=== PATIENT | female | born 1970 | race Caucasian/White ===

== ENCOUNTER 2025-03-07 18:06 | Emergency (ER) | payer OTHER ==
[~2025-03-07] VITALS: Ht 180.3 cm; Wt 104.5 kg
[2025-03-07 18:13] VITALS: BP 148/77; PULSE 82; O2SAT 98
--- NOTE | 2025-03-07 18:53 | RADIOLOGY REPORT ---
Indication: fall w/pain Technique: DI KNEE, COMP 4 VW MINKNEE CMPT Comparison: None FINDINGS/IMPRESSION: No radiographic evidence for acute fracture or dislocation. Moderate tricompartmental degenerative joint disease. Small to moderate suprapatellar effusion. Enthesopathy at quadriceps insertion upon the patella.
--- NOTE | 2025-03-07 19:12 | Physician Documentation ---
History of Present Illness ~ Chief Complaint: Knee Pain Stated Complaint: L KNEE PAIN Time Seen by MD: 18:36 HPI Patient is seen today with complaints of left-sided knee pain that is been slowly worsening over the last six months or so up until she tripped and fell yesterday and beth it but denies any direct blunt trauma or blunt force trauma to the left knee. She states she felt or heard a pop and now has trouble bearing weight on her left knee as well as flexing the left knee. She has no other concern or complaint at this time. Tetanus witin 5 years: No Medication Reconciliation Allergies: Coded Allergies: codeine (Verified Allergy, Unknown, hives, 03/07/25) Review of Systems Constitutional: Denies: chills, fever, weakness Eyes: Denies: pain, blurred vision ENT: Denies: ear pain, nose pain, throat pain, mouth pain Respiratory: Denies: cough, shortness of breath Cardiovascular: Denies: chest pain, palpitations Gastrointestinal: Denies: abdominal pain, nausea, vomiting Genitourinary: Denies: burning, dysuria Female Genitalia: Denies: vaginal discharge, pelvic pain Neurological: Denies: headache, dizziness Musculoskeletal: Denies: pain, swelling Integumentary: Denies: rash, lesions Allergic/Immunologic: Denies: hives, itching Hematologic/Lymphatic: Denies: no symptoms reported Psychiatric: Denies: depression, anxiety Physical Exam Vital Signs: Temperature: 99.8, Source: Oral, Heart Rate: 82, Respiratory Rate: 16, BP: 148/77, Pulse Oximetry: 98, Weight: 104.550 Oxygen Flow Rate: 0 Physical Exam General: Awake and Alert, no acute distress. HEENT: Conjunctiva pink, Sclera clear, Mucus Membranes moist. Neck: Supple without masses and tenderness. Resp: Unlabored. Lungs clear to auscultation bilaterally. Heart: Regular Rate and rhythm, normal S1 and S2 without murmur, rub or gallop. Musculoskeletal: Patient on exam does have pain with flexion of the left knee. She has mild swelling noted of the left knee. No significant tenderness or erythema or warmth or sign of infection of the left knee. Extremities: No cyanosis,clubbing or edema. Skin: Warm and Dry. Progress Results/Orders Results/Orders Orders - TAWANDA QUINTERO PAC Knee, Complete (03/07/25 18:22) Completed Orders - TAWANDA QUINTERO PAC Knee, Complete (03/07/25 18:22) Vital Signs 03/07/25 18:13 Temp 99.8 Pulse 82 Resp 16 B/P (MAP) 148/77 Pulse Ox 98 O2 Flow Rate 0 EKG/XRAY/CT/US/VASC/MRI Bone/Soft Tissue X-Ray (Ext.) : Additional Comment X-ray of left knee interpreted by myself today shows tricompartmental degenerative changes or arthritis without any sign of acute fracture and bones otherwise in anatomic alignment. Enthesopathy of the quadriceps tendon insertion point into the patella. DIAGNOSTIC RADIOLOGY Patient: ROSITA HAMMOND Medical Record: [id number] OF [facility] : 1970, Age: 54 Sex: Female Location: ER Patient Status: [facility] ER Service Date/Time: 03/07/251821 Ordering Physician: TAWANDA QUINTERO PAC Exam: KNEE, COMP 4 VW MIN Indication: fall w/pain Technique: DI KNEE, COMP 4 VW MINKNEE CMPT Comparison: None FINDINGS/IMPRESSION: No radiographic evidence for acute fracture or dislocation. Moderate tri compartmental degenerative joint disease. Small to moderate suprapatellar effusion. Enthesopathy at quadriceps insertion upon the patella. Electronically Signed by:MARI CAMPBELL MD Date & Time: 03/07/251853 Dictated by: MARI CAMPBELL MD Dictation date and time: 03/07/25 184 Primary Care Provider: NO PRIMARY CARE PROVIDER cc: TAWANDA QUINTERO PAC ~ Medical Decision Making Findings Patient is seen today with complaints of left-sided knee pain that is been slowly worsening over the last six months or so up until she tripped and fell yesterday and beth it but denies any direct blunt trauma or blunt force trauma to the left knee. She states she felt or heard a pop and now has trouble bearing weight on her left knee as well as flexing the left knee. She has no other concern or complaint at this time. Patient did have x-ray of the left knee that did show tricompartmental arthritis of the knee joint in the left side. Patient was given Toradol 30 mg IM in the ED today and prescription of meloxicam 15 mg one tab once a day with food sent to patient's pharmacy. Patient will follow up with primary care for referral to orthopedic knee specialist for further eval and treatment. Departure Disposition: HOME / SELF CARE / HOMELESS Impression: Primary Impression: Knee pain Qualified Codes: M25.562 - Pain in left knee Additional Impressions: Sprain of knee Qualified Codes: S83.92XA - Sprain of unspecified site of left knee, initial encounter Arthritis Condition: Improved Discharge Instructions: Acute Knee Pain, Adult Additional Instructions: Patient did have x-ray of the left knee that did show tricompartmental arthritis of the knee joint in the left side. Patient was given Toradol 30 mg IM in the ED today and prescription of meloxicam 15 mg one tab once a day with food sent to patient's pharmacy. Patient will follow up with primary care for referral to orthopedic knee specialist for further eval and treatment. Referrals: NO PRIMARY CARE PROVIDER (PCP) Prescriptions Meloxicam (Meloxicam) 15 Mg Tablet 1 TAB PO DAILY for 15 Days, #15 TAB 0 Refills Prov: TAWANDA QUINTERO 03/07/25 Signature Scribe Signature: No scribe Attestation: No scribe TAWANDA QUINTERO Mar 07, 2025 19:12
[2025-03-07] MEDS ORDERED: MELO-102 PO (19:17)
[2025-03-07 19:18] VITALS: RESP 18
[2025-03-07] MEDS: ketorolac trometh 30MG/ML vial 30 MG/ML VIAL IM STA (19:18)
[2025-03-07 19:22] VITALS: TEMP 98.7
== END 2025-03-07 19:25 | disposition home or self-care (01) ==
LOC: ER 18:08
DX: S83.92XA Sprain of unspecified site of left knee, initial encounter (principal); M17.12 Unilateral primary osteoarthritis, left knee; Z88.5 Allergy status to narcotic agent; X58.XXXA Exposure to other specified factors, initial encounter; Y93.89 Activity, other specified; Y92.89 Other specified places as the place of occurrence of the external cause; Y99.8 Other external cause status
CPT/HCPCS: 73564; 96372; 99283; J1885